=== PATIENT | female | born 2000 | race Caucasian/White ===

== ENCOUNTER → 2021-04-16 10:25 | Outpatient (CLI) | payer BC, SELFPAY ==
[2021-04-16 10:55] LABS: COVID19 -Nasal RAPID Negative (Negative)
== END ==
PROVIDERS: Family Provider Family Medicine; PCP Family Medicine; Visit Provider Physician Assistant
DX: R05 Cough (principal); R09.81 Nasal congestion; R50.9 Fever, unspecified; Z20.822 Contact with and (suspected) exposure to COVID-19
CPT/HCPCS: 87635